=== PATIENT | male | born 1955 | race Two or more races ===

== ENCOUNTER 2018-08-18 18:47 | Inpatient (IN) | payer OTHER ==
[~2018-08-18] VITALS: Ht 172.7 cm; Wt 65.3 kg
[2018-08-18 18:51] VITALS: BP 135/82
[2018-08-18 20:54] LABS: BASOPHILS # (AUTO) 0.1 K/uL (0.00-0.22); BASOPHILS % (AUTO) 0.6 % (0.0-2.0); EOSINOPHILS # (AUTO) 0.1 K/uL (0-0.4); EOSINOPHILS % (AUTO) 1.3 % (0.0-4.0); HEMATOCRIT 39.7 % (36-52); HEMOGLOBIN 12.6 g/dL (12.0-18.0); LYMPHOCYTES # (AUTO) 0.7 K/uL (2.0-11.5); LYMPHOCYTES % (AUTO) 8.4 % (20.5-51.1); MEAN CORPUSCULAR HEMOGLOBIN 26 pg (27-31); MEAN CORPUSCULAR HGB CONC 32 g/dL (33-37); MEAN CORPUSCULAR VOLUME 80.8 fL (80-94); MONOCYTES # (AUTO) 0.5 K/uL (0.8-1.0); MONOCYTES % (AUTO) 6.2 % (1.7-9.3); NEUTROPHILS # (AUTO) 7.4 K/uL (1.8-7.7); NEUTROPHILS % (AUTO) 83.5 % (42.2-75.2); PLATELET COUNT (AUTO) 194 K/uL (140-450); RED BLOOD CELL COUNT(AUTO) 4.92 MIL/uL (4.20-6.10); RED CELL DISTRIBUTION WIDTH 19.3 % (11.6-13.7); WHITE BLOOD COUNT (AUTO) 8.9 K/uL (4.8-10.8)
[2018-08-18 21:04] LABS: ANION GAP 9.5 (8-16); CREATININE 1.3 mg/dL (0.7-1.3); POTASSIUM 3.5 mmol/L (3.5-5.1)
[2018-08-18 21:11] LABS: ALBUMIN 3.2 g/dL (3.4-5.0)
[2018-08-18 21:17] LABS: APPEARANCE,URINE CLEAR (CLEAR); BILIRUBIN,URINE NEGATIVE (NEGATIVE); BLOOD, URINE TRACE-I (NEGATIVE); COLOR,URINE YELLOW (YELLOW); LEUKOCYTE ESTERASE ,URINE NEGATIVE (NEGATIVE); NITRITE, URINE NEGATIVE (NEGATIVE); PH,URINE 6.5 (5.0-9.0); UGLUCOSE NEGATIVE (NEGATIVE)
[2018-08-18 21:35] LABS: PROTHROMBIN TIME 24.7 secs (10.8-13.4)
[2018-08-18 21:52] LABS: CREATINE KINASE MB 0.7 ng/mL (0-3.6)
[2018-08-18] MEDS ORDERED: ASPIRIN 81 MG TAB.CHEW PO ONE (22:20)
[2018-08-18] MEDS ORDERED: DEXTROSE 50% 50 ML SYR IVP PRN (22:25)
[2018-08-18] MEDS ORDERED: ACETAMINOPHEN 325 MG TAB PO PRN (22:25)
[2018-08-18] MEDS ORDERED: HYDROcodone/APAP 7.5/325 MG 1 TAB PO PRN (22:25)
[2018-08-18] MEDS ORDERED: ZOLPIDEM 5 MG TAB PO PRN (22:25)
[2018-08-18] MEDS ORDERED: MECLIZINE 25 MG TAB PO PRN (22:25)
[2018-08-18] MEDS ORDERED: ONDANSETRON 4 MG/2 ML VIAL IVP PRN (22:25)
[2018-08-18] MEDS: NACL 0.9% 1,000 ML IV SCH (23:17)
[2018-08-18 23:30] VITALS: BP 147/90
[2018-08-18 23:46] LABS: FREE T4 (FREE THYROXINE) 1.25 ng/dL (0.76-1.46); MAGNESIUM 1.5 mg/dL (1.8-2.4); PHOSPHORUS 3.6 mg/dL (2.5-4.9); THYROID STIMULATING HORMONE 2.9 uIU/mL (0.34-3.74)
[2018-08-19] VITALS (7 sets, daily range): BP systolic 126–147; BP diastolic 73–86
[2018-08-19] MEDS ORDERED: PRAV40TA1 PO (01:31)
[2018-08-19] MEDS ORDERED: METO100T14 PO (01:31)
[2018-08-19] MEDS ORDERED: WARF7.5T PO (01:31)
[2018-08-19] MEDS ORDERED: OMEP20TC12 PO (01:31)
[2018-08-19] MEDS ORDERED: DIT5 PO (01:39)
[2018-08-19] MEDS ORDERED: INSU300S SC (01:39)
[2018-08-19] MEDS ORDERED: CAR30 PO (01:39)
[2018-08-19] MEDS ORDERED: TAMS0.4C96 PO (01:39)
[2018-08-19] MEDS ORDERED: DOCU-299 PO (01:39)
[2018-08-19] MEDS ORDERED: ALLO100T21 PO (01:39)
[2018-08-19] MEDS ORDERED: POTA8TER12 PO (01:39)
[2018-08-19] MEDS ORDERED: HUM SUBQ (01:39)
[2018-08-19] MEDS ORDERED: LISI-420 PO (01:40)
[2018-08-19] MEDS ORDERED: CLON0.1T42 PO (01:40)
[2018-08-19] MEDS: MAG SULF 2000 MG/WATER PREMIX 100 ML IV SCH ×2 (02:31→06:09)
[2018-08-19] MEDS ORDERED: FUROSEMIDE 40 MG/4 ML VIAL IVP SCH (03:15)
[2018-08-19] MEDS: PANTOPRAZOLE 40 MG TABEC PO SCH (06:03)
[2018-08-19] MEDS: INSULIN LISPRO SLIDING SCALE 100 UNITS/ML VIAL SUBQ PRN ×4 (06:10→22:35)
[2018-08-19] MEDS: BLOOD GLUCOSE MONITORING 1 DEV DEV FS SCH ×4 (06:13→21:10)
[2018-08-19 07:40] LABS: BASOPHILS % (AUTO) 0.2 % (0.0-2.0); EOSINOPHILS # (AUTO) 0.3 K/uL (0-0.4); EOSINOPHILS % (AUTO) 3.8 % (0.0-4.0); HEMATOCRIT 38.4 % (36-52); HEMOGLOBIN 12.2 g/dL (12.0-18.0); LYMPHOCYTES # (AUTO) 0.8 K/uL (2.0-11.5); LYMPHOCYTES % (AUTO) 10.3 % (20.5-51.1); MEAN CORPUSCULAR HEMOGLOBIN 26 pg (27-31); MEAN CORPUSCULAR HGB CONC 32 g/dL (33-37); MEAN CORPUSCULAR VOLUME 80.9 fL (80-94); MONOCYTES # (AUTO) 0.5 K/uL (0.8-1.0); MONOCYTES % (AUTO) 5.6 % (1.7-9.3); NEUTROPHILS # (AUTO) 6.6 K/uL (1.8-7.7); NEUTROPHILS % (AUTO) 80.1 % (42.2-75.2); PLATELET COUNT (AUTO) 198 K/uL (140-450); RED BLOOD CELL COUNT(AUTO) 4.75 MIL/uL (4.20-6.10); RED CELL DISTRIBUTION WIDTH 19.1 % (11.6-13.7); WHITE BLOOD COUNT (AUTO) 8.2 K/uL (4.8-10.8)
[2018-08-19 08:01] LABS: ANION GAP 11.8 (8-16); CARBON DIOXIDE 33.4 mmol/L (21-32); CREATININE 1.4 mg/dL (0.7-1.3); POTASSIUM 3.2 mmol/L (3.5-5.1)
[2018-08-19 08:06] LABS: MAGNESIUM 2.3 mg/dL (1.8-2.4); PHOSPHORUS 3.3 mg/dL (2.5-4.9)
[2018-08-19] MEDS: POTASSIUM CHLORIDE 8 MEQ TABER PO SCH (08:45)
[2018-08-19] MEDS: DILTIAZEM 30 MG TAB PO SCH ×2 (08:47→21:11)
[2018-08-19] MEDS: cloNIDine 0.1 MG TAB PO SCH (08:47)
[2018-08-19] MEDS: METOPROLOL SUCCINATE 50 MG TABER PO SCH (08:48)
[2018-08-19] MEDS: OXYBUTYNIN 5 MG TAB PO SCH ×2 (08:48→21:12)
[2018-08-19] MEDS: LISINOPRIL 20 MG TAB PO SCH (08:49)
[2018-08-19 08:50] LABS: PROTHROMBIN TIME 22.6 secs (10.8-13.4)
[2018-08-19] MEDS: ALLOPURINOL 100 MG TAB PO SCH (08:50)
[2018-08-19] MEDS: DOCUSATE SODIUM 100 MG GELCAP PO SCH ×2 (08:55→21:11)
[2018-08-19] MEDS ORDERED: NON-FORMULARY ITEM (Omeprazole (Omeprazole) 1 TAB) PO SCH (09:00)
[2018-08-19] MEDS ORDERED: DOCUSATE SODIUM 100 MG GELCAP PO SCH (09:00)
[2018-08-19 09:37] LABS: CHOL/HDL RATIO 5.9 (1-4.5)
[2018-08-19] MEDS: BENZONATATE 100 MG CAPLF PO PRN (11:10)
[2018-08-19] MEDS: WARFARIN 2.5 MG TAB PO SCH (18:32)
[2018-08-19] MEDS ORDERED: ATORVASTATIN 20 MG TAB PO SCH (21:00)
[2018-08-19] MEDS ORDERED: INSULIN GLARGINE HUM REC ANLOG U SCH (21:00)
[2018-08-19] MEDS ORDERED: TAMSULOSIN 0.4 MG CAP PO SCH (21:00)
[2018-08-19] MEDS ORDERED: NON-FORMULARY ITEM (Pravastatin Sodium* (Pravachol*) 40 MG) PO SCH (21:00)
[2018-08-19] MEDS ORDERED: INSULIN DETEMIR 100 UNITS/ML 10 ML VIAL SUBQ SCH (21:00)
[2018-08-19] MEDS: NACL 0.9% 1,000 ML IV SCH (22:21)
[2018-08-20] VITALS: BP 126/67
[2018-08-20 04:00] VITALS: BP 142/64
[2018-08-20] MEDS: PANTOPRAZOLE 40 MG TABEC PO SCH (06:30)
[2018-08-20] MEDS: BLOOD GLUCOSE MONITORING 1 DEV DEV FS SCH ×3 (07:30→16:39)
[2018-08-20 08:00] VITALS: BP 139/80
[2018-08-20] MEDS: ALLOPURINOL 100 MG TAB PO SCH (09:15)
[2018-08-20] MEDS: POTASSIUM CHLORIDE 8 MEQ TABER PO SCH (09:16)
[2018-08-20] MEDS: METOPROLOL SUCCINATE 50 MG TABER PO SCH (09:16)
[2018-08-20] MEDS: DOCUSATE SODIUM 100 MG GELCAP PO SCH (09:17)
[2018-08-20] MEDS: cloNIDine 0.1 MG TAB PO SCH (09:17)
[2018-08-20] MEDS: OXYBUTYNIN 5 MG TAB PO SCH (09:17)
[2018-08-20] MEDS: LISINOPRIL 20 MG TAB PO SCH (09:18)
[2018-08-20] MEDS: DILTIAZEM 30 MG TAB PO SCH (09:18)
[2018-08-20] MEDS: BENZONATATE 100 MG CAPLF PO PRN (09:18)
[2018-08-20 11:14] LABS: BASOPHILS % (AUTO) 0.5 % (0.0-2.0); EOSINOPHILS # (AUTO) 0.4 K/uL (0-0.4); EOSINOPHILS % (AUTO) 5.3 % (0.0-4.0); HEMATOCRIT 37.1 % (36-52); LYMPHOCYTES # (AUTO) 0.8 K/uL (2.0-11.5); LYMPHOCYTES % (AUTO) 10.9 % (20.5-51.1); MEAN CORPUSCULAR HEMOGLOBIN 26 pg (27-31); MEAN CORPUSCULAR HGB CONC 32 g/dL (33-37); MEAN CORPUSCULAR VOLUME 80.6 fL (80-94); MONOCYTES # (AUTO) 0.5 K/uL (0.8-1.0); MONOCYTES % (AUTO) 6.6 % (1.7-9.3); NEUTROPHILS # (AUTO) 5.9 K/uL (1.8-7.7); NEUTROPHILS % (AUTO) 76.7 % (42.2-75.2); PLATELET COUNT (AUTO) 183 K/uL (140-450); RED CELL DISTRIBUTION WIDTH 19.6 % (11.6-13.7); WHITE BLOOD COUNT (AUTO) 7.7 K/uL (4.8-10.8)
[2018-08-20 12:00] VITALS: BP 102/61
[2018-08-20] MEDS: INSULIN LISPRO SLIDING SCALE 100 UNITS/ML VIAL SUBQ PRN ×2 (12:00→16:45)
[2018-08-20 12:18] LABS: MAGNESIUM 1.9 mg/dL (1.8-2.4); PHOSPHORUS 2.9 mg/dL (2.5-4.9)
[2018-08-20 12:20] LABS: CREATININE 1.3 mg/dL (0.7-1.3)
[2018-08-20 13:16] LABS: PROTHROMBIN TIME 19.4 secs (10.8-13.4)
[2018-08-20] MEDS ORDERED: POTASSIUM CHLORIDE 10 MEQ TABER PO SCH (14:02)
[2018-08-20] MEDS ORDERED: POTASSIUM CHLORIDE 40 MEQ, LIDOCAINE MPF 1% - 5 mL VIAL 25 MG in NACL 0.9% 250 ML IV SCH (15:00)
[2018-08-20 15:54] VITALS: BP 115/64
[2018-08-20] MEDS: WARFARIN 2.5 MG TAB PO SCH (16:43)
[2018-08-20] MEDS ORDERED: POTASSIUM CHLORIDE 40 MEQ, LIDOCAINE 1% 25 MG in NACL 0.9% 250 ML IV SCH (19:00)
[2018-08-20] MEDS ORDERED: INSULIN LANTUS 100 UNITS/ML 10 ML VIAL SUBQ SCH (21:00)
== END 2018-08-20 19:00 | disposition home health service (06) | DRG 73 ==
LOC: MED 18:47 → MTU 22:21
PROVIDERS: ADMIT General Practice; ATTEND General Practice
DX: G90.9 Disorder of the autonomic nervous system, unspecified (principal); I50.43 Acute on chronic combined systolic (congestive) and diastolic (congestive) heart failure; E44.1 Mild protein-calorie malnutrition; N40.0 Benign prostatic hyperplasia without lower urinary tract symptoms; I48.91 Unspecified atrial fibrillation; E78.5 Hyperlipidemia, unspecified; I11.0 Hypertensive heart disease with heart failure; E11.21 Type 2 diabetes mellitus with diabetic nephropathy; E87.6 Hypokalemia; E83.42 Hypomagnesemia; M10.9 Gout, unspecified; Z79.01 Long term (current) use of anticoagulants; Z68.21 Body mass index [BMI] 21.0-21.9, adult; Z95.2 Presence of prosthetic heart valve
CPT/HCPCS: 36415; 70450; 71045; 76604; 80048; 80053; 81003; 82140; 82150; 82550; 82553; 82948; 83036; 83605; 83690; 83735; 83880; 84100; 84439; 84443; 84484; 85025; 85610; 85730; 87040; 87081; 93005; 93880; 99285; J1815; J1940; J2001; J3475; J3480; J7030; Q0092